=== PATIENT | male | born 1955 | race Caucasian/White ===

== ENCOUNTER 2016-12-21 17:26 | Inpatient (IN) | payer MEDICAID, OTHER ==
[~2016-12-21] VITALS: Ht 154.9 cm; Wt 67.1 kg
[~2016-12-21 17:26] MED LIST: ASPI-1158 PO; ATOR10TA PO; INSU100C6 SQ; LEVVL SQ; METF10002 PO; METO25TA6 PO; OMEP40CA34 PO
[2016-12-21] MEDS ORDERED: ONDANSETRON HCL 4MG/2ML VIAL IV ONE (18:15)
[2016-12-21] MEDS ORDERED: SODIUM CHLORIDE 0.9% 1,000 ML IV ONE (18:15)
[2016-12-21] MEDS ORDERED: MORPHINE SULFATE 4 MG/ML CPJ (NOT FOR IM USE) IV ONE ×2 (18:15→21:00)
[2016-12-21 18:52] LABS: BASOPHILS % 0.8 % (0.0-2.0); EOSINOPHILS % 2.7 % (0.0-5.0); HEMATOCRIT. 43.6 % (42.0-52.0); HEMOGLOBIN. 14.8 g/dL (14.0-18.0); LYMPHOCYTES % 13.8 % (20.0-50.0); MEAN CORPUSCULAR HEMOGLOBIN 29.1 pg (28.0-32.0); MEAN CORPUSCULAR VOLUME 85.5 fL (80.0-94.0); MEAN PLATELET VOLUME 8.6 fl (7.4-10.4); MONOCYTES % 4.8 % (2.0-8.0); NEUTROPHILS % 77.9 % (40.0-76.0); PLATELET 200 x1000/uL (130-400); RED CELL DISTRIBUTION WIDTH 13.3 % (11.6-14.6)
[2016-12-21 18:58] LABS: CHLORIDE 97 mEq/L (98-107)
[2016-12-21 19:01] LABS: CARBON DIOXIDE 24 mEq/L (21-32)
[2016-12-21 19:04] LABS: INR 1.2; PARTIAL THROMBOPLASTIN TIME 26.9 sec (24.0-34.0); PROTHROMBIN TIME 12.6 sec
[2016-12-21 19:44] LABS: CLARITY URINE CLEAR (CLEAR); COLOR URINE YELLOW (YELLOW); KETONES URINE NEGATIVE (NEGATIVE); LEUKOCYTE ESTERASE URINE NEGATIVE (NEGATIVE); NITRITE URINE NEGATIVE (NEGATIVE); OCCULT BLOOD URINE NEGATIVE (NEGATIVE); PH URINE 5.5 (4.5-8.0); PROTEIN URINE NEGATIVE (NEGATIVE); SPECIFIC GRAVITY URINE 1.046 (1.005-1.030)
[2016-12-22] MEDS ORDERED: SODIUM CHLORIDE 0.9% 1,000 ML IV SCH (05:00)
[2016-12-22] MEDS ORDERED: ONDANSETRON HCL 4MG/2ML VIAL IV PRN (05:00)
[2016-12-22] MEDS: MORPHINE SULFATE 2 MG/ML CPJ (NOT FOR IM USE) IV PRN ×2 (05:12→10:00)
[2016-12-22 09:36] LABS: BASOPHILS % 0.5 % (0.0-2.0); EOSINOPHILS % 3.2 % (0.0-5.0); HEMATOCRIT. 39.6 % (42.0-52.0); HEMOGLOBIN. 13.4 g/dL (14.0-18.0); LYMPHOCYTES % 13.2 % (20.0-50.0); MEAN CORPUSCULAR HEMOGLOBIN 29.2 pg (28.0-32.0); MEAN CORPUSCULAR VOLUME 86.2 fL (80.0-94.0); MEAN PLATELET VOLUME 8.3 fl (7.4-10.4); MONOCYTES % 4.8 % (2.0-8.0); NEUTROPHILS % 78.3 % (40.0-76.0); PLATELET 171 x1000/uL (130-400); RED BLOOD CELL COUNT 4.59 mill/uL (4.7-6.1)
[2016-12-22 09:52] LABS: CARBON DIOXIDE 30 mEq/L (21-32); CHLORIDE 100 mEq/L (98-107); HDL CHOLESTEROL 32 mg/dL (40-59); LDL CHOLESTEROL 66 mg/dL (5-100)
[2016-12-22] MEDS ORDERED: DEXTROSE 50% WATER 50ML SYRINGE IV PRN (11:45)
[2016-12-22] MEDS ORDERED: BLOOD SUGAR DIAGNOSTIC STRIP TEST SCH (12:10)
[2016-12-22] MEDS ORDERED: INSULIN LISPRO 100 UNITS/ML SUBCUT SCH (12:40)
[2016-12-22] MEDS ORDERED: INSULIN DETEMIR UD 100 UNITS/ML SYR SUBCUT NR (14:00)
[2016-12-22 15:39] VITALS: BP 102/64
[2016-12-23] MEDS ORDERED: OMEPRAZOLE 20MG CAPSULE EXTENDED RELEASE PO SCH (07:10)
[2016-12-23] MEDS ORDERED: MEDICATION NOT ON FORMULARY EA (Omeprazole 40 MG) PO SCH (09:00)
[2016-12-23] MEDS ORDERED: ASPIRIN 81MG EC TABLET PO SCH (09:00)
[2016-12-23] MEDS ORDERED: INSULIN DETEMIR UD 100 UNITS/ML SYR SUBCUT SCH (10:00)
== END 2016-12-22 16:55 | disposition home or self-care (01) | DRG 282 ==
LOC: ER 18:06 → 8WST 21:25 → EDBEDREQ 21:28 → EDBEDREQTM 21:28 → ENRESERV 12-22 02:59
PROVIDERS: ADMIT Internal Medicine; ATTEND Internal Medicine
DX: K85.90 Acute pancreatitis without necrosis or infection, unspecified (principal); E11.65 Type 2 diabetes mellitus with hyperglycemia; F10.21 Alcohol dependence, in remission; F17.200 Nicotine dependence, unspecified, uncomplicated; Z79.4 Long term (current) use of insulin; Z79.82 Long term (current) use of aspirin
CPT/HCPCS: 36415; 80053; 80061; 81001; 82962; 83690; 85025; 85610; 85730; 96361; 96374; 96375; 96376; 99285; J1815; J2270; J2405; J7030

== ENCOUNTER 2017-07-30 15:11 | Emergency (ER) | payer MEDICAID ==
[~2017-07-30] VITALS: Ht 154.9 cm; Wt 68.0 kg
[2017-07-30 17:52] LABS: BASOPHILS % 1.1 % (0.0-2.0); EOSINOPHILS % 5.8 % (0.0-5.0); HEMATOCRIT. 43.4 % (42.0-52.0); HEMOGLOBIN. 14.7 g/dL (14.0-18.0); LYMPHOCYTES % 22.8 % (20.0-50.0); MEAN CORPUSCULAR HEMOGLOBIN 29.4 pg (28.0-32.0); MEAN CORPUSCULAR VOLUME 86.6 fL (80.0-94.0); MEAN PLATELET VOLUME 8.7 fl (7.4-10.4); MONOCYTES % 4.7 % (2.0-8.0); NEUTROPHILS % 65.6 % (40.0-76.0); PLATELET 201 x1000/uL (130-400); RED BLOOD CELL COUNT 5.01 mill/uL (4.7-6.1); RED CELL DISTRIBUTION WIDTH 13.6 % (11.6-14.6)
[2017-07-30 17:57] LABS: INR 1.1
[2017-07-30 17:58] LABS: CHLORIDE 99 mEq/L (98-107)
[2017-07-30 18:06] LABS: TROPONIN I < 0.02 ng/mL (0.00-0.04)
[2017-07-30 19:30] VITALS: BP 144/74
== END 2017-07-30 20:00 | disposition home or self-care (01) ==
LOC: ER 15:41
DX: R06.02 Shortness of breath (principal); R05 Cough; R07.89 Other chest pain; E11.9 Type 2 diabetes mellitus without complications; F17.200 Nicotine dependence, unspecified, uncomplicated; Z79.4 Long term (current) use of insulin; Z79.82 Long term (current) use of aspirin
CPT/HCPCS: 36415; 71045; 80053; 83880; 84484; 85025; 85610; 93005; 99285; Z7610

== ENCOUNTER 2017-11-01 19:47 | Emergency (ER) | payer MEDICAID ==
[~2017-11-01] VITALS: Ht 154.9 cm; Wt 66.0 kg
[2017-11-02] MEDS ORDERED: ONDANSETRON 4MG ODT PO STA (03:03)
[2017-11-02] MEDS ORDERED: MAGNESIUM/ALUMINUM HYDROXIDE/SIMETHICONE 30ML UDC PO STA (03:03)
[2017-11-02] MEDS ORDERED: LACTULOSE 20G/30ML UDC PO ONE (03:15)
[2017-11-02 03:23] LABS: CHLORIDE 100 mEq/L (98-107)
[2017-11-02 03:26] LABS: BASOPHILS % 1.2 % (0.0-2.0); EOSINOPHILS % 6.8 % (0.0-5.0); HEMATOCRIT. 45.5 % (42.0-52.0); HEMOGLOBIN. 15.7 g/dL (14.0-18.0); LYMPHOCYTES % 31.9 % (20.0-50.0); MEAN CORPUSCULAR HEMOGLOBIN 29.6 pg (28.0-32.0); MEAN CORPUSCULAR VOLUME 85.9 fL (80.0-94.0); MEAN PLATELET VOLUME 8.3 fl (7.4-10.4); MONOCYTES % 5.7 % (2.0-8.0); NEUTROPHILS % 54.4 % (40.0-76.0); PLATELET 213 x1000/uL (130-400); RED CELL DISTRIBUTION WIDTH 13.5 % (11.6-14.6)
[2017-11-02 03:52] LABS: INR 1.1; PROTHROMBIN TIME 11.7 sec (9.4-11.6)
[2017-11-02] MEDS ORDERED: MAGNESIUM CITRATE 300ML SOLUTION PO ONE (04:45)
[2017-11-02 04:50] VITALS: BP 125/71
== END 2017-11-02 05:01 | disposition home or self-care (01) ==
LOC: ER 19:47
DX: K59.00 Constipation, unspecified (principal); E11.9 Type 2 diabetes mellitus without complications; Z79.4 Long term (current) use of insulin; F17.210 Nicotine dependence, cigarettes, uncomplicated
CPT/HCPCS: 36415; 74018; 80053; 83690; 85025; 85610; 99285; Q0162

== ENCOUNTER 2017-12-18 18:08 | Emergency (ER) | payer MEDICAID ==
[~2017-12-18] VITALS: Ht 154.9 cm; Wt 68.0 kg
[~2017-12-18 18:08] MED LIST changes: -METF10002 PO; +METF10004 PO
[2017-12-18] MEDS ORDERED: TETANUS, DIPHTHERIA, PERTUSSIS VAC/PF 0.5ML (>7YR OLD) IM ONE (19:00)
[2017-12-18 21:02] VITALS: BP 116/62
== END 2017-12-18 21:02 | disposition home or self-care (01) ==
LOC: ER 18:08
DX: S91.101A Unspecified open wound of right great toe without damage to nail, initial encounter (principal); E11.9 Type 2 diabetes mellitus without complications; Z79.82 Long term (current) use of aspirin; Z79.899 Other long term (current) drug therapy; X58.XXXA Exposure to other specified factors, initial encounter; Y93.89 Activity, other specified; Y99.8 Other external cause status; Y92.89 Other specified places as the place of occurrence of the external cause
CPT/HCPCS: 99283

== ENCOUNTER 2018-09-13 20:20 | Emergency (ER) | payer MEDICAID ==
[~2018-09-13] VITALS: Ht 154.9 cm; Wt 66.0 kg
[~2018-09-13 20:20] MED LIST changes: +EMPA25TA MT; +LINA1TAB5 MT; +METF-416 PO; -METF10004 PO
[2018-09-13 21:35] VITALS: BP 121/73
[2018-09-13] MEDS ORDERED: VISCOUS LIDOCAINE 2% 15 ML UDC PO STA (22:49)
[2018-09-13] MEDS ORDERED: MAGNESIUM/ALUMINUM HYDROXIDE/SIMETHICONE 30ML UDC PO STA (22:49)
== END 2018-09-14 00:11 | disposition home or self-care (01) ==
LOC: ER 20:20
DX: K21.9 Gastro-esophageal reflux disease without esophagitis (principal); E11.9 Type 2 diabetes mellitus without complications; F17.200 Nicotine dependence, unspecified, uncomplicated; Z79.4 Long term (current) use of insulin; Z79.899 Other long term (current) drug therapy
CPT/HCPCS: 99283

== ENCOUNTER 2019-01-21 21:22 | Emergency (ER) | payer MEDICAID ==
[~2019-01-21] VITALS: Ht 162.6 cm; Wt 66.0 kg
[2019-01-22 01:48] LABS: HEMATOCRIT 43.9 % (42.0-52.0); HEMOGLOBIN 14.8 g/dL (14.0-18.0); MEAN CORPUSCULAR VOLUME 88.8 fL (80.0-94.0); PLATELET 207 x1000/uL (130-400); RED BLOOD CELL COUNT 4.94 mill/uL (4.7-6.1); RED CELL DISTRIBUTION WIDTH 13.4 % (11.6-14.6)
[2019-01-22 02:01] LABS: CHLORIDE 105 mEq/L (98-107)
[2019-01-22] MEDS ORDERED: CEPHALEXIN 250MG CAPSULE PO SCH (02:49)
[2019-01-22] MEDS ORDERED: SULFAMETHOXAZOLE/TRIMETHOPRIM 800/160MG TABLET PO SCH (02:49)
[2019-01-22 02:50] VITALS: BP 131/65
== END 2019-01-22 03:00 | disposition home or self-care (01) ==
LOC: ER 21:22
DX: E11.621 Type 2 diabetes mellitus with foot ulcer (principal); F17.200 Nicotine dependence, unspecified, uncomplicated; Z79.4 Long term (current) use of insulin; Z79.82 Long term (current) use of aspirin; Z79.84 Long term (current) use of oral hypoglycemic drugs; Z79.899 Other long term (current) drug therapy
CPT/HCPCS: 36415; 73610; 73630; 83605; 85027; 99284

== ENCOUNTER 2020-08-24 10:11 | Emergency (ER) | payer MEDICAID, OTHER ==
[~2020-08-24] VITALS: Ht 154.9 cm; Wt 64.0 kg
[~2020-08-24 10:11] MED LIST changes: -ASPI-1158 PO; +ASPI-1406 PO; +OMEP40CA12 PO; -OMEP40CA34 PO
[2020-08-24 11:24] LABS: BASOPHILS % 0.6 % (0.0-2.0); EOSINOPHILS % 3.4 % (0.0-5.0); HEMATOCRIT. 41.1 % (42.0-52.0); HEMOGLOBIN. 13.7 g/dL (14.0-18.0); LYMPHOCYTES % 14.2 % (20.0-50.0); MEAN CORPUSCULAR HEMOGLOBIN 29.7 pg (28.0-32.0); MEAN PLATELET VOLUME 8.2 fl (7.4-10.4); MONOCYTES % 5.5 % (2.0-8.0); NEUTROPHILS % 76.3 % (40.0-76.0); PLATELET 233 x1000/uL (130-400); RED BLOOD CELL COUNT 4.62 mill/uL (4.7-6.1); RED CELL DISTRIBUTION WIDTH 14.2 % (11.6-14.6)
[2020-08-24 11:36] LABS: CHLORIDE 98 mEq/L (98-107)
[2020-08-24 11:43] LABS: BETA HYDROXYBUTYRATE 0.2 mMol/L (0.0-0.3)
[2020-08-24 12:09] LABS: CLARITY URINE CLEAR (CLEAR); COLOR URINE DARK YELLOW (YELLOW); KETONES URINE 1+ (NEGATIVE); LEUKOCYTE ESTERASE URINE TRACE (NEGATIVE); NITRITE URINE NEGATIVE (NEGATIVE); OCCULT BLOOD URINE 1+ (NEGATIVE); PH URINE 5.5 (4.5-8.0); PROTEIN URINE 1+ (NEGATIVE); SPECIFIC GRAVITY URINE 1.026 (1.005-1.030)
[2020-08-24 12:35] LABS: OPIATES URINE SCREEN NEGATIVE (NEGATIVE)
[2020-08-24 12:36] LABS: *AMPHETAMINES SCREEN URINE NEGATIVE (NEGATIVE); *BENZODIAZEPINES SCREEN URINE NEGATIVE (NEGATIVE); *COCAINE SCREEN URINE NEGATIVE (NEGATIVE); CANNABINOID URINE SCREEN PRESUMTIVE POSITIVE (NEGATIVE); METHADONE URINE SCREEN NEGATIVE (NEGATIVE); PHENCYCLIDINE URINE SCREEN NEGATIVE (NEGATIVE)
[2020-08-24 12:46] LABS: *BARBITURATES SCREEN URINE NEGATIVE (NEGATIVE)
[2020-08-24 22:31] VITALS: BP 119/68
== END 2020-08-24 22:41 | disposition short-term general hospital (02) ==
LOC: ER 10:11 → CANBEDREQ 18:19 → ER 22:41
DX: U07.1 COVID-19 (principal); D72.829 Elevated white blood cell count, unspecified; D64.9 Anemia, unspecified; E87.1 Hypo-osmolality and hyponatremia; E11.65 Type 2 diabetes mellitus with hyperglycemia; F12.10 Cannabis abuse, uncomplicated; R31.9 Hematuria, unspecified; Z79.899 Other long term (current) drug therapy; Z79.82 Long term (current) use of aspirin; Z98.890 Other specified postprocedural states; Z79.4 Long term (current) use of insulin
CPT/HCPCS: 36415; 71045; 73620; 80053; 80305; 81003; 82010; 82962; 83605; 83880; 84145; 84484; 85025; 87040; 87070; 87086; 87205; 87426; 93005; 93923; 93970; 99285; Z7610

== ENCOUNTER 2024-12-02 13:07 | Inpatient (IN) | payer BC, MEDICAID, MEDICARE ==
[~2024-12-02] VITALS: Ht 167.6 cm; Wt 58.1 kg
[~2024-12-02 13:07] MED LIST changes: -OMEP40CA12 PO; +OMEP40CA20 PO
[2024-12-02 14:10] LABS: BASOPHILS % 1.1 % (0.0-2.0); EOSINOPHILS % 4.1 % (0.0-5.0); HEMATOCRIT. 29.9 % (42.0-52.0); HEMOGLOBIN. 10.5 g/dL (14.0-18.0); LYMPHOCYTES % 15.4 % (20.0-50.0); MEAN PLATELET VOLUME 7.9 fl (7.4-10.4); MONOCYTES % 5.7 % (2.0-8.0); NEUTROPHILS % 73.7 % (40.0-76.0); PLATELET 191 x1000/uL (130-400); RED BLOOD CELL COUNT 3.39 mill/uL (4.7-6.1); RED CELL DISTRIBUTION WIDTH 12.9 % (11.6-14.6)
[2024-12-02] MEDS: SODIUM CHLORIDE 0.9% (SEPSIS BOLUS) IV ONE (14:17)
[2024-12-02 14:25] LABS: INR 1.2
[2024-12-02] MEDS: VANCOMYCIN 1G PREMIX 200 ML IV ONE (14:26)
[2024-12-02] MEDS: PIPERACILLIN/TAZO 3.375G/50ML 50 ML IV ONE (14:26)
[2024-12-02 14:48] LABS: CREATININE 1.1 mg/dL (0.6-1.3); UREA NITROGEN BLOOD 21 mg/dL (9-23)
[2024-12-02 14:50] LABS: ASPARTATE AMINOTRANSFERASE 9 IU/L (<34); BILIRUBIN DIRECT 0.3 mg/dL (<=3.0); BILIRUBIN TOTAL 0.8 mg/dL (0.1-1.0); TROPONIN I HIGH SENSITIVITY 4 ng/L (3.0-53)
[2024-12-02 15:19] LABS: PROTEIN TOTAL 5.4 g/dL (6.0-8.3)
[2024-12-02] MEDS ORDERED: GUAIFENESIN 200MG/10ML SUGAR FREE UDC PO PRN (16:15)
[2024-12-02] MEDS ORDERED: MAGNESIUM/ALUMINUM HYDROXIDE/SIMETHICONE 30ML UDC PO PRN (16:15)
[2024-12-02] MEDS ORDERED: DEXTROSE 50% WATER 50ML SYRINGE IV PRN (16:15)
[2024-12-02] MEDS ORDERED: ONDANSETRON HCL 4MG/2ML INJ IV PRN (16:15)
[2024-12-02] MEDS ORDERED: IPRATROPIUM/ALBUTEROL 0.5-3(2.5)MG/3ML NEB HHN PRN (16:15)
[2024-12-02] MEDS ORDERED: PIPERACILLIN/TAZOBACTAM 3.375 G in DEXTROSE 5% WATER 50 ML IV SCH (16:15)
[2024-12-02] MEDS ORDERED: ACETAMINOPHEN 325MG TABLET PO PRN (16:30)
[2024-12-02] MEDS: SODIUM CHLORIDE 0.9% 1,000 ML IV SCH (16:51)
[2024-12-02] MEDS: BLOOD SUGAR DIAGNOSTIC STRIP TEST SCH (17:02)
[2024-12-02] MEDS: PANTOPRAZOLE SODIUM 40 MG/VIAL IV SCH (17:02)
[2024-12-02 18:00] VITALS: BP 128/69; PULSE 82; RESP 20; TEMP 37.1; O2SAT 98
[2024-12-02 19:38] LABS: FOLIC ACID (FOLATE) SERUM 13.33 ng/mL (>5.38)
[2024-12-02 19:39] LABS: VITAMIN B12 SERUM 521 pg/mL (211-911)
[2024-12-02 20:00] VITALS: BP 123/93; PULSE 72; RESP 20; TEMP 37; O2SAT 98
[2024-12-02] MEDS: INSULIN LISPRO 100 UNITS/ML SUBCUT SCH (21:00)
[2024-12-02] MEDS: INSULIN GLARGINE 100 UNITS/ML SUBCUT SCH (22:00)
[2024-12-02] MEDS: PIPERACILLIN/TAZO 3.375G/50ML IV SCH (22:28)
[2024-12-02] MEDS: KETOROLAC 15MG/ML VIAL IV PRN (22:51)
[2024-12-02 22:59] VITALS: BP 131/73; PULSE 63; RESP 18; TEMP 36.2
[2024-12-03] VITALS: BP 141/87; PULSE 69; RESP 20; TEMP 36.3; O2SAT 100
[2024-12-03 00:33] LABS: TROPONIN I HIGH SENSITIVITY 4 ng/L (3.0-53)
[2024-12-03 04:00] VITALS: BP 160/71; PULSE 66; RESP 16; TEMP 36.3; O2SAT 100
[2024-12-03] MEDS: VANCOMYCIN 750MG/150ML (BAXTER) IV SCH (05:39)
[2024-12-03] MEDS: DOCUSATE SODIUM 100MG CAPSULE PO PRN (06:03)
[2024-12-03] MEDS: CLONIDINE 0.1MG TABLET PO PRN (06:03)
[2024-12-03 08:00] VITALS: BP 109/76; PULSE 66; RESP 19; TEMP 36.2; O2SAT 97
[2024-12-03 08:30] LABS: BASOPHILS % 0.9 % (0.0-2.0); EOSINOPHILS % 6.7 % (0.0-5.0); HEMATOCRIT. 32.8 % (42.0-52.0); HEMOGLOBIN. 11.4 g/dL (14.0-18.0); LYMPHOCYTES % 13.5 % (20.0-50.0); MEAN PLATELET VOLUME 8.1 fl (7.4-10.4); MONOCYTES % 4.8 % (2.0-8.0); NEUTROPHILS % 74.1 % (40.0-76.0); PLATELET 206 x1000/uL (130-400); RED BLOOD CELL COUNT 3.76 mill/uL (4.7-6.1); RED CELL DISTRIBUTION WIDTH 13.4 % (11.6-14.6)
[2024-12-03 08:45] LABS: TROPONIN I HIGH SENSITIVITY < 4 ng/L (3.0-53)
[2024-12-03 08:46] LABS: CREATININE 1.1 mg/dL (0.6-1.3); TRIGLYCERIDE 119 mg/dL (0-150); UREA NITROGEN BLOOD 17 mg/dL (9-23)
[2024-12-03 08:47] LABS: LDL CHOLESTEROL 50 mg/dL (5-100)
[2024-12-03 08:48] LABS: T4 FREE 0.95 ng/dL (0.89-1.76)
[2024-12-03] MEDS: INSULIN LISPRO 100 UNITS/ML SUBCUT SCH (10:28)
[2024-12-03 12:00] VITALS: BP 128/71; PULSE 66; RESP 17; TEMP 37.1; O2SAT 99
[2024-12-03 16:00] VITALS: BP 130/62; PULSE 59; RESP 17; TEMP 36.3; O2SAT 96
[2024-12-03] MEDS: CLINDAMYCIN 600MG PREMIX 50 ML IV SCH (18:27)
[2024-12-03 20:00] VITALS: BP 115/64; PULSE 64; RESP 17; TEMP 36.6; O2SAT 99
[2024-12-04] VITALS: BP 143/71; PULSE 63; RESP 17; TEMP 36.7; O2SAT 98
[2024-12-04 04:00] VITALS: BP 149/76; PULSE 65; RESP 20; TEMP 36.9; O2SAT 100
[2024-12-04 08:00] VITALS: BP 139/75; PULSE 70; RESP 19; TEMP 37.1; O2SAT 97
[2024-12-04] MEDS: ASPIRIN 81MG TABLET PO SCH (08:59)
[2024-12-04 09:43] LABS: PLATELET 224 x1000/uL (130-400); RED BLOOD CELL COUNT 3.85 mill/uL (4.7-6.1); RED CELL DISTRIBUTION WIDTH 13.2 % (11.6-14.6)
[2024-12-04 09:57] LABS: CREATININE 1.0 mg/dL (0.6-1.3); UREA NITROGEN BLOOD 15 mg/dL (9-23)
[2024-12-04] MEDS ORDERED: NALOXONE HCL 0.4MG/ML VIAL IV PRN (10:15)
[2024-12-04 12:00] VITALS: BP 143/66; PULSE 70; RESP 19; TEMP 36.3; O2SAT 99
[2024-12-04 16:00] VITALS: BP 153/74; PULSE 75; RESP 18; TEMP 36.7; O2SAT 97
[2024-12-04] MEDS: TRAMADOL 50MG TABLET PO PRN (16:53)
[2024-12-05 04:00] VITALS: BP 132/81; PULSE 74; RESP 16; TEMP 36.7; O2SAT 100
[2024-12-05 08:00] VITALS: BP 133/65; PULSE 64; RESP 18; TEMP 36.6; O2SAT 100
[2024-12-05] MEDS: FAMOTIDINE 20MG/2ML VIAL IV SCH (09:09)
[2024-12-05 12:21] VITALS: BP 133/70; PULSE 63; RESP 20; TEMP 36.3; O2SAT 100
[2024-12-05 16:00] VITALS: BP 160/81; PULSE 71; RESP 20; TEMP 36.5; O2SAT 100
[2024-12-05 20:00] VITALS: BP 145/63; PULSE 70; RESP 20; TEMP 36.3; O2SAT 98
[2024-12-05] MEDS: ACETAMINOPHEN 325MG TABLET PO PRN (21:21)
[2024-12-06 04:00] VITALS: BP 133/85; PULSE 64; RESP 18; TEMP 36.4; O2SAT 99
[2024-12-06 08:00] VITALS: BP 149/80; PULSE 71; RESP 16; TEMP 36.5; O2SAT 100
[2024-12-06 12:00] VITALS: BP 142/85; PULSE 68; RESP 18; TEMP 36.6; O2SAT 99
[2024-12-06 16:00] VITALS: BP 180/89; PULSE 67; RESP 17; TEMP 36.5; O2SAT 99
[2024-12-06 20:00] VITALS: BP 130/64; PULSE 63; RESP 17; TEMP 36.4; O2SAT 99
[2024-12-06] MEDS: INSULIN GLARGINE 100 UNITS/ML SUBCUT SCH (22:00)
[2024-12-07 08:00] VITALS: BP 161/65; PULSE 67; RESP 18; TEMP 36.3; O2SAT 99
[2024-12-07 12:00] VITALS: BP 105/63; PULSE 73; RESP 19; TEMP 36.4; O2SAT 100
[2024-12-07 16:00] VITALS: BP 137/64; PULSE 67; RESP 18; TEMP 36.5; O2SAT 100
[2024-12-07 20:00] VITALS: BP 150/71; PULSE 67; RESP 18; TEMP 36.3; O2SAT 100
[2024-12-08] VITALS: BP 132/78; PULSE 69; RESP 16; TEMP 36.5; O2SAT 99
[2024-12-08 04:00] VITALS: BP 161/75; PULSE 73; RESP 19; TEMP 36.4; O2SAT 100
[2024-12-08] MEDS: CLINDAMYCIN 600 MG in SODIUM CHLORIDE 0.9% 50 ML IV SCH (06:08)
[2024-12-08 08:00] VITALS: BP 113/71; PULSE 74; RESP 18; TEMP 36.5; O2SAT 100
[2024-12-08 12:00] VITALS: BP 154/84; PULSE 68; RESP 16; TEMP 36.5; O2SAT 100
[2024-12-08 16:00] VITALS: BP 145/70; PULSE 68; RESP 18; TEMP 36.6; O2SAT 100
[2024-12-08 20:00] VITALS: BP 164/64; PULSE 78; RESP 18; TEMP 36.8; O2SAT 100
[2024-12-09] VITALS: BP 147/65; PULSE 76; RESP 18; TEMP 36.6; O2SAT 100
[2024-12-09] MEDS ORDERED: LIDOCAINE HCL 1% 10 MG/ML 10ML VIAL ONE ×2 (07:24→07:25)
[2024-12-09] MEDS ORDERED: POLYMYXIN B SULFATE 500000 UNITS/VIAL ONE (07:24)
[2024-12-09] MEDS ORDERED: DEXAMETHASONE 4MG/ML 1ML VIAL ONE (07:25)
[2024-12-09] MEDS ORDERED: ONDANSETRON HCL 4MG/2ML INJ ONE (07:25)
[2024-12-09] MEDS ORDERED: BUPIVACAINE HCL/PF 0.5% (5MG/ML) 10ML ONE (07:25)
[2024-12-09] MEDS ORDERED: FENTANYL CITRATE/PF 50MCG/ML 2ML VIAL ONE (07:26)
[2024-12-09] MEDS ORDERED: PROPOFOL 200MG/20ML VIAL IV ONE (07:26)
[2024-12-09] MEDS ORDERED: FAMOTIDINE 20MG/2ML VIAL IV ONE (07:30)
[2024-12-09] MEDS ORDERED: ACETAMINOPHEN 1000MG/100ML 100 ML IV ONE (07:31)
[2024-12-09] MEDS ORDERED: ONDANSETRON HCL 4MG/2ML INJ IV PRN (08:00)
[2024-12-09] MEDS ORDERED: FENTANYL CITRATE/PF 50MCG/ML 2ML VIAL IV PRN (08:00)
[2024-12-09] MEDS ORDERED: HYDROMORPHONE HCL/PF 1MG/ML INJ IV PRN (08:00)
[2024-12-09] MEDS ORDERED: HYDRALAZINE 10 MG in DEXTROSE 5% WATER 50 ML IV ONE (09:15)
[2024-12-09] MEDS: HYDRALAZINE 20MG/ML VIAL IV NR (09:21)
[2024-12-09] MEDS ORDERED: HYDRALAZINE 20MG/ML VIAL IV ONE (09:30)
[2024-12-09 10:17] VITALS: BP 152/76; PULSE 85; RESP 18; TEMP 36.4; O2SAT 100
[2024-12-09 12:00] VITALS: BP 152/76; PULSE 87; RESP 16; TEMP 36.4; O2SAT 100
[2024-12-09] MEDS: HYDROCODONE/ACETAMINOPHEN 10/325MG TABLET PO PRN (15:25)
[2024-12-09 16:00] VITALS: BP 146/77; PULSE 94; RESP 18; TEMP 36.1; O2SAT 96
[2024-12-09 20:00] VITALS: BP 146/70; PULSE 87; RESP 18; TEMP 36.5; O2SAT 99
[2024-12-09] MEDS: CLINDAMYCIN 900MG PREMIX 50 ML IV SCH (23:42)
[2024-12-10 04:00] VITALS: BP 130/58; PULSE 69; RESP 18; TEMP 36.9; O2SAT 98
[2024-12-10 08:00] VITALS: BP 106/69; PULSE 75; RESP 18; TEMP 36.6; O2SAT 97
[2024-12-10 08:29] LABS: BASOPHILS % 0.9 % (0.0-2.0); EOSINOPHILS % 4.7 % (0.0-5.0); HEMATOCRIT. 29.4 % (42.0-52.0); HEMOGLOBIN. 10.2 g/dL (14.0-18.0); LYMPHOCYTES % 27.5 % (20.0-50.0); MEAN PLATELET VOLUME 7.0 fl (7.4-10.4); MONOCYTES % 7.2 % (2.0-8.0); NEUTROPHILS % 59.7 % (40.0-76.0); PLATELET 238 x1000/uL (130-400); RED BLOOD CELL COUNT 3.34 mill/uL (4.7-6.1); RED CELL DISTRIBUTION WIDTH 13.2 % (11.6-14.6)
[2024-12-10 08:36] LABS: CREATININE 0.9 mg/dL (0.6-1.3); UREA NITROGEN BLOOD 23 mg/dL (9-23)
[2024-12-10] MEDS ORDERED: AMOX1TAB16 MT (10:39)
[2024-12-10] MEDS ORDERED: IBUP-2030 PO (10:40)
[2024-12-10 12:00] VITALS: BP 149/66; PULSE 74; RESP 20; TEMP 36.6; O2SAT 100
[2024-12-10] MEDS: LACTOBACILLUS RHAMNOSUS GG CAP PO SCH (13:16)
[2024-12-10 14:09] VITALS: BP 139/70; PULSE 99; TEMP 98; O2SAT 98
== END 2024-12-10 15:27 | disposition home or self-care (01) | DRG 854 ==
LOC: ER 13:07 → 6WST 16:25 → EDBEDREQ 16:28 → ENRESERV 17:38 → 6EST 12-04 21:44
PROVIDERS: ADMIT Hospitalist; ATTEND Hospitalist
PROC: 0Y6S0Z1 Detachment at Left 2nd Toe, High, Open Approach (ICD-10-PCS; principal; 2024-12-09)
DX: A41.9 Sepsis, unspecified organism (principal); E11.52 Type 2 diabetes mellitus with diabetic peripheral angiopathy with gangrene; E11.40 Type 2 diabetes mellitus with diabetic neuropathy, unspecified; L08.9 Local infection of the skin and subcutaneous tissue, unspecified; E11.621 Type 2 diabetes mellitus with foot ulcer; I10 Essential (primary) hypertension; D64.9 Anemia, unspecified; R00.1 Bradycardia, unspecified; L97.529 Non-pressure chronic ulcer of other part of left foot with unspecified severity; E78.00 Pure hypercholesterolemia, unspecified; F17.210 Nicotine dependence, cigarettes, uncomplicated; Z79.4 Long term (current) use of insulin; Z79.82 Long term (current) use of aspirin; Z79.84 Long term (current) use of oral hypoglycemic drugs; Z79.899 Other long term (current) drug therapy; Z89.422 Acquired absence of other left toe(s); I95.89 Other hypotension
CPT/HCPCS: 36415; 71045; 73630; 73721; 80048; 80061; 80076; 82550; 82607; 82728; 82746; 82962; 83036; 83540; 83550; 83605; 83735; 83880; 84145; 84439; 84443; 84484; 85025; 85027; 85651; 87077; 88311; 93005; 93922; 93970; 97110; 97162; 97166; 97530; 99285; A4606; A6449; J0360; J0665; J1100; J1308; J1815; J1885; J2003; J2405; J2470; J2543; J2704; J3010; J3370; J3490; J7030; J0131

== ENCOUNTER 2024-12-19 11:53 | Emergency (ER) | payer BC, MEDICAID ==
[~2024-12-19] VITALS: Ht 152.4 cm; Wt 62.0 kg
[~2024-12-19 11:53] MED LIST changes: +AMOX1TAB16 MT; +IBUP-2030 PO
[2024-12-19 11:54] VITALS: O2SAT 100
[2024-12-19 13:03] LABS: BASOPHILS % 0.6 % (0.0-2.0); EOSINOPHILS % 1.2 % (0.0-5.0); HEMATOCRIT. 34.1 % (42.0-52.0); HEMOGLOBIN. 11.8 g/dL (14.0-18.0); LYMPHOCYTES % 12.9 % (20.0-50.0); MEAN PLATELET VOLUME 7.7 fl (7.4-10.4); MONOCYTES % 3.8 % (2.0-8.0); NEUTROPHILS % 81.5 % (40.0-76.0); PLATELET 297 x1000/uL (130-400); RED BLOOD CELL COUNT 3.93 mill/uL (4.7-6.1); RED CELL DISTRIBUTION WIDTH 13.6 % (11.6-14.6)
[2024-12-19 13:23] LABS: CREATININE 1.2 mg/dL (0.6-1.3)
[2024-12-19 13:24] LABS: UREA NITROGEN BLOOD 33 mg/dL (9-23)
[2024-12-19 13:25] LABS: ASPARTATE AMINOTRANSFERASE 27 IU/L (<34)
[2024-12-19 13:26] LABS: BILIRUBIN DIRECT 0.2 mg/dL (<=3.0); BILIRUBIN TOTAL 0.6 mg/dL (0.1-1.0); PROTEIN TOTAL 7.1 g/dL (6.0-8.3)
[2024-12-19] MEDS ORDERED: INSU100C6 SQ (16:17)
[2024-12-19] MEDS ORDERED: TOPUD MT (16:17)
[2024-12-19] MEDS ORDERED: DOCU-138 MT (16:17)
[2024-12-19 16:30] VITALS: BP 97/58; PULSE 70; RESP 20; TEMP 36.7; O2SAT 96
== END 2024-12-19 16:34 | disposition home or self-care (01) ==
LOC: ER 11:53
DX: K59.00 Constipation, unspecified (principal); E11.9 Type 2 diabetes mellitus without complications; E78.00 Pure hypercholesterolemia, unspecified; I10 Essential (primary) hypertension; Z79.4 Long term (current) use of insulin; Z79.82 Long term (current) use of aspirin; Z79.84 Long term (current) use of oral hypoglycemic drugs; Z79.899 Other long term (current) drug therapy
CPT/HCPCS: 36415; 80048; 80076; 85025; 99283

== ENCOUNTER 2025-05-01 13:05 | Inpatient (IN) | payer MEDICAID ==
[~2025-05-01] VITALS: Ht 152.4 cm; Wt 59.0 kg
[~2025-05-01 13:05] MED LIST changes: +DOCU-138 MT; +TOPUD MT
[2025-05-01 13:21] VITALS: O2SAT 100
[2025-05-01] MEDS: HYDROCODONE/ACETAMINOPHEN 5/325MG TABLET PO ONE (14:54)
[2025-05-01] MEDS: SODIUM CHLORIDE 0.9% 1,000 ML IV ONE (14:54)
[2025-05-01 15:20] LABS: BASOPHILS % 1.0 % (0.0-2.0); EOSINOPHILS % 2.2 % (0.0-5.0); HEMATOCRIT. 31.9 % (42.0-52.0); HEMOGLOBIN. 10.8 g/dL (14.0-18.0); LYMPHOCYTES % 13.3 % (20.0-50.0); MEAN PLATELET VOLUME 7.8 fl (7.4-10.4); MONOCYTES % 5.2 % (2.0-8.0); NEUTROPHILS % 78.3 % (40.0-76.0); PLATELET 289 x1000/uL (130-400); RED BLOOD CELL COUNT 3.60 mill/uL (4.7-6.1); RED CELL DISTRIBUTION WIDTH 13.2 % (11.6-14.6)
[2025-05-01 15:36] LABS: CREATININE 1.5 mg/dL (0.6-1.3); UREA NITROGEN BLOOD 27 mg/dL (9-23)
[2025-05-01 15:38] LABS: ASPARTATE AMINOTRANSFERASE 9 IU/L (<34); BILIRUBIN DIRECT 0.2 mg/dL (<=3.0); BILIRUBIN TOTAL 0.6 mg/dL (0.1-1.0); PROTEIN TOTAL 6.3 g/dL (6.0-8.3)
[2025-05-01] MEDS: INSULIN REGULAR (HUMULIN R) 1000UNITS/10ML VIAL SUBCUT ONE (16:20)
[2025-05-02] MEDS ORDERED: DEXTROSE 50% WATER 50ML SYRINGE IV PRN ×2 (01:45→10:30)
[2025-05-02] MEDS: HYDROCODONE/ACETAMINOPHEN 10/325MG TABLET PO PRN (02:32)
[2025-05-02] MEDS: AMLODIPINE 10MG TABLET PO NR (02:33)
[2025-05-02 04:00] VITALS: BP 141/72; PULSE 73; RESP 17; TEMP 35.9; O2SAT 100
[2025-05-02 05:16] VITALS: BP 171/84; PULSE 76; RESP 20; TEMP 36.5292
[2025-05-02] MEDS: INSULIN LISPRO 100 UNITS/ML SUBCUT SCH ×2 (07:23→13:17)
[2025-05-02] MEDS: BLOOD SUGAR DIAGNOSTIC STRIP TEST SCH (08:08)
[2025-05-02] MEDS: AMLODIPINE 10MG TABLET PO SCH (08:39)
[2025-05-02 09:59] LABS: BASOPHILS % 0.9 % (0.0-2.0); EOSINOPHILS % 4.0 % (0.0-5.0); HEMATOCRIT. 29.2 % (42.0-52.0); HEMOGLOBIN. 10.1 g/dL (14.0-18.0); LYMPHOCYTES % 18.5 % (20.0-50.0); MEAN PLATELET VOLUME 7.9 fl (7.4-10.4); MONOCYTES % 4.2 % (2.0-8.0); NEUTROPHILS % 72.4 % (40.0-76.0); PLATELET 269 x1000/uL (130-400); RED BLOOD CELL COUNT 3.36 mill/uL (4.7-6.1); RED CELL DISTRIBUTION WIDTH 13.3 % (11.6-14.6)
[2025-05-02 10:08] LABS: CREATININE 1.0 mg/dL (0.6-1.3)
[2025-05-02 10:09] LABS: UREA NITROGEN BLOOD 22 mg/dL (9-23)
[2025-05-02] MEDS: INSULIN GLARGINE 100 UNITS/ML SUBCUT NR (10:30)
[2025-05-02] MEDS: PIPERACILLIN/TAZO 3.375G/50ML 50 ML IV SCH (15:38)
[2025-05-02] MEDS ORDERED: NALOXONE HCL 0.4MG/ML VIAL IV PRN ×2 (16:00→17:45)
[2025-05-02 20:00] VITALS: BP 103/54; PULSE 72; RESP 19; TEMP 36.8; O2SAT 96
[2025-05-02] MEDS: ATORVASTATIN CALCIUM 40MG TABLET PO SCH (21:58)
[2025-05-02] MEDS: INSULIN GLARGINE 100 UNITS/ML SUBCUT SCH (22:00)
[2025-05-03] VITALS: BP 99/54; PULSE 73; RESP 16; TEMP 36.6; O2SAT 100
[2025-05-03 04:00] VITALS: BP 126/62; PULSE 70; RESP 19; TEMP 36.8; O2SAT 98
[2025-05-03 08:00] VITALS: BP 140/68; PULSE 60; RESP 18; TEMP 36.7; O2SAT 98
[2025-05-03] MEDS ORDERED: AMOX1TAB16 MT (11:47)
[2025-05-03] MEDS ORDERED: INSU100I28 SQ (11:47)
[2025-05-03 13:40] VITALS: BP 114/63; PULSE 74; RESP 18; TEMP 97.8
[2025-05-03 16:00] VITALS: BP 103/85; PULSE 78; RESP 18; TEMP 36.7; O2SAT 98
[2025-05-03 20:00] VITALS: BP 123/62; PULSE 76; RESP 16; TEMP 36.7; O2SAT 97
[2025-05-04] VITALS: BP 124/64; PULSE 73; RESP 18; TEMP 36.5; O2SAT 99
[2025-05-04 04:00] VITALS: BP 138/70; PULSE 69; RESP 16; TEMP 36.9; O2SAT 97
[2025-05-04 08:00] VITALS: BP 117/60; PULSE 73; RESP 20; TEMP 36.4; O2SAT 100
[2025-05-04 12:00] VITALS: BP 127/78; PULSE 78; RESP 19; TEMP 36.4; O2SAT 98
[2025-05-04 16:00] VITALS: BP 113/51; PULSE 75; RESP 18; TEMP 36.4; O2SAT 100
[2025-05-05] MEDS: PANTOPRAZOLE 40MG DR TABLET PO SCH (06:45)
[2025-05-05 08:00] VITALS: BP 155/76; PULSE 75; RESP 18; TEMP 36.6; O2SAT 100
[2025-05-05 12:00] VITALS: BP 111/54; PULSE 77; RESP 18; TEMP 36.2; O2SAT 99
[2025-05-05 12:05] VITALS: BP 120/62; PULSE 62; RESP 18; TEMP 36.7; O2SAT 97
[2025-05-05 14:01] VITALS: BP 122/64; PULSE 62; RESP 16; TEMP 98.1
[2025-05-05 16:00] VITALS: BP 123/64; PULSE 61; RESP 18; TEMP 36.5; O2SAT 97
== END 2025-05-05 16:58 | disposition home or self-care (01) | DRG 639 ==
LOC: ER 13:47 → ENRESERV 22:08 → 6EST 23:55
PROVIDERS: ADMIT Internal Medicine; ATTEND Internal Medicine
DX: E11.621 Type 2 diabetes mellitus with foot ulcer (principal); L97.519 Non-pressure chronic ulcer of other part of right foot with unspecified severity; L97.529 Non-pressure chronic ulcer of other part of left foot with unspecified severity; N17.9 Acute kidney failure, unspecified; D64.9 Anemia, unspecified; E11.65 Type 2 diabetes mellitus with hyperglycemia; E11.22 Type 2 diabetes mellitus with diabetic chronic kidney disease; I12.9 Hypertensive chronic kidney disease with stage 1 through stage 4 chronic kidney disease, or unspecified chronic kidney disease; N18.9 Chronic kidney disease, unspecified; S90.822A Blister (nonthermal), left foot, initial encounter; S90.821A Blister (nonthermal), right foot, initial encounter; E78.00 Pure hypercholesterolemia, unspecified; Z89.429 Acquired absence of other toe(s), unspecified side; Z79.4 Long term (current) use of insulin; Z79.84 Long term (current) use of oral hypoglycemic drugs; Z79.899 Other long term (current) drug therapy; X58.XXXA Exposure to other specified factors, initial encounter; Y93.89 Activity, other specified; Y92.89 Other specified places as the place of occurrence of the external cause; Y99.8 Other external cause status
CPT/HCPCS: 36415; 73630; 73718; 80048; 80076; 82962; 83036; 85025; 93923; 96360; 99285; A4606; J1815; J2543; J7030